=== PATIENT | female | born 1935 | race Caucasian/White ===

== ENCOUNTER 2023-10-20 12:36 | Outpatient (CLI) | payer MEDICARE | END 2023-10-20 12:37 | disposition home or self-care (01) | LOC: CT 12:36 | PROVIDERS: ATTEND Physician Assistant Medical | DX: K64.9 Unspecified hemorrhoids (principal); K59.00 Constipation, unspecified; R10.30 Lower abdominal pain, unspecified | CPT/HCPCS: 74177; 82565 ==